=== PATIENT | female | born 1970 | race Asian ===

== ENCOUNTER 2018-10-21 13:44 | Outpatient (RCR) | payer BC | END 2018-10-24 | disposition home or self-care (01) | LOC: WCC 13:44 | DX: M86.9 Osteomyelitis, unspecified (principal); M27.2 Inflammatory conditions of jaws; Q78.2 Osteopetrosis; G89.29 Other chronic pain; Z96.643 Presence of artificial hip joint, bilateral; Z79.899 Other long term (current) drug therapy; Z88.0 Allergy status to penicillin; Z91.012 Allergy to eggs | CPT/HCPCS: 99204 ==

== ENCOUNTER 2018-11-03 13:00 | Outpatient (RCR) | payer BC | END 2018-11-23 | disposition home or self-care (01) | LOC: WCC 13:00 | DX: M86.38 Chronic multifocal osteomyelitis, other site (principal); M27.2 Inflammatory conditions of jaws; Z88.0 Allergy status to penicillin; Z91.012 Allergy to eggs; Z96.643 Presence of artificial hip joint, bilateral; Z79.899 Other long term (current) drug therapy | CPT/HCPCS: G0277 ×10 ==

== ENCOUNTER 2018-11-24 09:33 | Outpatient (RCR) | payer BC | END 2018-12-24 | disposition home or self-care (01) | LOC: WCC 09:33 | DX: M86.38 Chronic multifocal osteomyelitis, other site (principal); M27.2 Inflammatory conditions of jaws; Z88.0 Allergy status to penicillin; Z91.012 Allergy to eggs; M81.0 Age-related osteoporosis without current pathological fracture; Z96.643 Presence of artificial hip joint, bilateral | CPT/HCPCS: G0277; G0463 ==

== ENCOUNTER 2018-12-25 08:18 | Outpatient (RCR) | payer BC | END 2019-01-24 | disposition home or self-care (01) | LOC: WCC 08:18 | DX: M86.38 Chronic multifocal osteomyelitis, other site (principal); M27.2 Inflammatory conditions of jaws; Z88.0 Allergy status to penicillin; Z88.8 Allergy status to other drugs, medicaments and biological substances; Z91.012 Allergy to eggs; Z96.643 Presence of artificial hip joint, bilateral; Z79.899 Other long term (current) drug therapy | CPT/HCPCS: G0277; G0463 ==

== ENCOUNTER 2020-02-29 11:48 | Outpatient (RCR) | payer MEDICARE, MEDICAID | END 2020-03-26 | disposition home or self-care (01) | LOC: WCC 11:48 | DX: M86.38 Chronic multifocal osteomyelitis, other site (principal); M27.2 Inflammatory conditions of jaws; Z96.643 Presence of artificial hip joint, bilateral; Z88.0 Allergy status to penicillin; Z88.8 Allergy status to other drugs, medicaments and biological substances; F41.9 Anxiety disorder, unspecified; F32.9 Major depressive disorder, single episode, unspecified | CPT/HCPCS: G0463 ==

== ENCOUNTER → 2020-03-07 | Outpatient (CLI) | payer MEDICARE, MEDICAID ==
--- NOTE | 2020-03-07 18:50 | Diagnostic Imaging Report ---
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 Flow, blood pool, and static images obtained of the femurs. Whole body static images were also obtained at 3 hours. Comparison: None. No comparison plain radiographs Findings: Flow images demonstrate slight hyperemia of the right hip and proximal thigh. Blood pool images demonstrate increased tracer activity outlining the cortices of both proximal femurs. Static images demonstrate a angulated linear focus of increased activity in the midshaft of the left femur. The left femur is significant shortening than the right. There is also a similar appearing more distal annulated focus of increased activity in the distal right femur. There is asymmetric increased activity in the left mandible which is not particularly striking. No flow or blood pool images of this area could be obtained Intense uptake is seen in the bilateral distal femoral and proximal tibial epiphyses. Increased activity is seen in the distal tibial epiphyses, in the distal radial and ulnar epiphyses, and a slight extent in the epiphyses about the elbows. There is also increased epiphyseal activity in the bilateral shoulders. There is very striking increased activity in the bilateral maxillary sinus region and in the periorbital regions bilaterally. There is generalized increased cortical uptake. This is particularly striking in the skull, lower extremities, and proximal upper extremities. There is focal increased activity in the proximal right humerus Impression: Findings are somewhat difficult to interpret given the background abnormalities resulting from stated clinical history of osteopetrosis. No definite asymmetric flow or blood pool activity in the left femur to suggest acute osteomyelitis. There is a nonspecific band of increased activity in the femoral shaft, which could represent proliferative change related to the osteopetrosis or could represent a healing fracture deformity. Note similar finding in the distal right femur Since flow and blood pool images were obtained of the femoral region, similar images cannot be obtained of the mandible. Therefore, increased left mandibular activity is nonspecific, could represent osteomyelitis but could also represent abnormal uptake related to the osteoporosis or posttraumatic change Markedly abnormal symmetric bilateral maxillary activity, significance uncertain Abnormal cortical and epiphyseal activity as described, presumably related to stated clinical history of osteopetrosis Nonspecific proximal right humeral activity, could be posttraumatic
== END | disposition home or self-care (01) ==
LOC: NUM 08:58
DX: M27.2 Inflammatory conditions of jaws (principal); M86.9 Osteomyelitis, unspecified
CPT/HCPCS: 78315; A4641